=== PATIENT | male | born 1960 | race Caucasian/White ===

== ENCOUNTER 2022-07-12 06:17 | Day surgery (SDC) | payer OTHER, SELFPAY ==
[2022-07-12] VITALS (12 sets, daily range): BP systolic 133–148; BP diastolic 81–93; PULSE 58–65; RESP 16–18; TEMP 36.6–36.9; O2SAT 94–98; BMI 35.2
--- NOTE | 2022-07-12 07:48 | P.ORPRC_ITS ---
Procedure Note Date of procedure: 07/12/22 Procedure: Preop diagnosis: Right upper extremity carpal tunnel syndrome Postop diagnosis: Right upper extremity carpal tunnel syndrome Procedure: Right upper extremity carpal tunnel release Anesthesia: Local Surgeon: Yosvany Thompson MD assistant professor of geography: ADAM Denise EBL: 5 mL Complications: None Specimens: None Drains: None Indications: The patient has a history of right upper extremity carpal tunnel syndrome symptoms. Despite appropriate nonoperative management consisting of nighttime bracing and occupational therapy they continue to have symptoms. Operative intervention was recommended. The risks, benefits alternatives and expected outcomes were discussed in detail. These included but were not limited to: Infection, bleeding, injury to blood vessel or nerve, venous thromboembolism. All questions were answered to their satisfaction. The patient was placed supine on the operating room table. Local anesthesia was established with 0.5% Marcaine without epinephrine and 2% lidocaine without epinephrine. The hand was prepped and draped in usual sterile fashion. The limb was elevated the forearm pneumatic tourniquet was inflated to 250 mm of mercury. A longitudinal incision was made centered over the radial border of the ring finger at the base of the palm. Subcutaneous dissection was sharply taken through the palmar fascia and the palmaris brevis to the transverse carpal ligament. The ligament was divided in line with the incision. Proximal and distal dissection was carried with tenotomy and Metzenbaum scissors for a wide decompression of the carpal tunnel. The tourniquet was released , bleeding was controlled with direct pressure. The wound was closed with a 3-0 nylon. A bulky dry dressing was applied, sponge and needle counts were correct x 2. The patient tolerated the procedure well, there were no apparent complications. They were sent to same day surgery in satisfactory condition. Plan: Use of the hand as tolerates. Discontinue the intraoperative dressing on postoperative day 3 and may get the wound wet as tolerates. Follow up in the office in 2 weeks for a wound check and suture removal.
--- NOTE | 2022-07-12 08:16 | SUR.PREOP ---
I have reviewed and concur with all assessments, medication administration, and documentation completed by Brittany Souza, student nurse.?
== END 2022-07-12 08:21 | disposition home or self-care (01) ==
PROVIDERS: Visit Provider Orthopaedic Surgery
PROC: (CPT 64721; principal; 2022-07-12 07:15)
DX: G56.01 Carpal tunnel syndrome, right upper limb (principal)
CPT/HCPCS: 64721

== ENCOUNTER 2022-12-03 14:45 | Outpatient (RCR) | payer OTHER, SELFPAY | END 2023-04-02 23:59 | disposition home or self-care (01) | PROVIDERS: Visit Provider Orthopaedic Surgery | DX: M17.12 Unilateral primary osteoarthritis, left knee (principal); Z96.652 Presence of left artificial knee joint; M25.562 Pain in left knee; M25.662 Stiffness of left knee, not elsewhere classified; Z51.89 Encounter for other specified aftercare | CPT/HCPCS: 97161; 97535 ==

== ENCOUNTER 2022-12-18 06:06 | Day surgery (SDC) | payer OTHER, SELFPAY ==
[2022-12-18] VITALS (22 sets, daily range): BP systolic 101–151; BP diastolic 57–87; PULSE 16–70; RESP 12–18; TEMP 35.3–36.7; O2SAT 91–98; BMI 36.1
--- OUTSIDE RECORDS SUMMARY | 2022-12-18 06:11 | XMS_ITS | Continuity of Care Document ---
Author Name Unknown Organization [facility] Address [address] [place] [address] Phone Care Team Providers Care Corner Cutter Name Role Phone Saji Mistry Unavailable Unavailable Allergies, Adverse Reactions, Alerts Substance Reaction Status Criticality No Known Allergies Active No Inform ation Medications Medication Instructions Dosage Effective Dates (start - stop) Status Comments BENAZEPRIL HCL (unknown strength) Not Available - Active GEMFIBROZIL (unknown strength) Not Available - Active OMEGA-3 + D (unknown strength) Not Available - Active OMEPRAZOLE (unknown strength) Not Available - Active VIAGRA (unknown strength) Not Available - Active Procedures Procedure Date Office/Outpatient Visit,Est, Mod 2021 Office/Outpatient Visit,New, Mod 2020 Office/outpatient visit,est, mod 2010 X-ray exam of thoracic spine 2 view Postop followup visit Low back disk surgery/decompress 2008 PA Assist Low back disk surgery/decompre ss Office/outpatient visit,est, mod 2008 Office/outpatient visit,est, mod 2007 X-ray exam of thoracic spine 2 view Office/outpatient visit,est, mod 2007 X-ray exam of thoracic spine 2 view [facility] Remove vertebr body, thorax, sing le [facility] Remove added vertebral seg, thora x [facility] Cervical spine fusion (cerv,below C2) [facility] Spinal fusion, ea add'l interspac e Insert spine fix dev, ant, 2-3 seg Oct3 0-2006 Autograft, spine surgery, local 007 Office/outpatient visit,est, mod 2006 Office/outpatient visit,est, mod 2006 Office/outpatient visit,est, mod 2005 Advance Directives Directive Yes / No Effective Date File Name No Information Encounters Encounter Description Practice Location Reason(s) For Visit Diagnoses Date Provider Providers Copied on Encounter Office/Outpa tient Visit,Est, Mod [facility], [address], [place], [place], [id number], [place] tel:[phone] [facility] [place] [facility] in [facility] spine 2 Leobardo Lennon. [facility], [address], [place], [place], [id number], [place]. tel:[phone] Referring Provider: Saji Booth, [facility] [address], [place], [address] . tel:[phone] Office/Outpa tient Visit,New, Mod [facility], [address], [place], [place], [id number], [place] tel:[phone] [facility] 1 Leobardo Lennon. [facility], [address], [place], [place], [id number], [place]. tel:[phone] Referring Provider: Saji Booth, [facility] [address], [place], [address] . tel:[phone] Office/outpa tient visit,est, mod [facility], [address], [place], [address], [place] tel:[phone] [facility] [place] No Information 1 No Information Referring Provider: Irving Mejia, [address], [address]. tel:[phone] Z [facility], [address], [place], [address], [place] tel:[phone] [facility] No Information 9 No Information Referring Provider: Irving Mejia, [address], [address]. tel:[phone] Z [facility], [address], [place], [address], [place] tel:[phone] [facility] No Information 9 No Information Referring Provider: Irving Mejia, [address], [address]. tel:[phone] Office/outpa tient visit,est, mod Z [facility], [address], [place], [address], [place] tel:[phone] [facility] No Information 9 No Information Referring Provider: Irving Mejia, [address], [address]. tel:[phone] Office/outpa tient visit,est, mod Z [facility], [address], [place], [address], [place] tel:[phone] [email or web address] No Information 8 No Information Office/outpa tient visit,est, mod Z [facility], [address], [place], [address], [place] tel:[phone] [facility] No Information 8 No Information Z [facility], [address], [place], [address], [place] tel:[phone] [facility] No Information 7 No Information Office/outpa tient visit,est, mod Z [facility], [address], [place], [address], [place] tel:[phone] [facility] No Information 0 7 No Information Office/outpa tient visit,est, mod Z [facility], [address], [place], [address], [place] tel:[phone] [email or web address] No Information Sep-1 2-200 7 No Information Office/outpa tient visit,est, mod Z [facility], [address], [place], [address], [place] tel:[phone] [facility] No Information Sep-0 6200 6 No Information Referring Provider: Irving Mejia, [address], [address]. tel:[phone] Family History Family Member Type Diagnosis Age At Onset No Information Payers Payer name Insurance type Covered green party ID Authoriza tion(s) [employer] [id number] Social History Type Description Quantity Date Captured Comments Alcohol Use Details Unknown Caffeine Use Details Unknown Tobacco Use Status No Information Smoking Status No Information Sex Male Vital Signs Date / Time: Height Weight BMI Pulse Rate Blood Pressure Temperature Respiratory Rate Body Surface Area Head Circumference Head Circ. Percentile Wt./Cassius. Percentile BMI percentile Pulse Ox Inhaled Ox 9:08 AM 72.00 in Chief Complaint And Reason For Visit No Information Reason For Referral Reason For Referral No Information History Of Present Illness Encounter Date Complaint History Of Prese nt Illness No Information Functional Status Date Functional Assessmen t No Information Instructions Date Instruction Additional Infor mation No Information Assessments Type Assessment Date No Information Patient Care Teams Name Effective Dates (start - stop) Status Members No Information
[2022-12-18] MEDS: ACETAMINOPHEN 500 MG TABLET 1000 MG PO ×3 (06:54→18:35)
[2022-12-18] MEDS: CELECOXIB 200 MG CAPSULE PO (06:54)
[2022-12-18] MEDS: OXYCODONE (CR) 10 MG TAB.ER.12H PO (06:54)
[2022-12-18] MEDS: SODIUM CHLORIDE 0.9 % (FLUSH) 10 ML SYRINGE IVF (07:00)
[2022-12-18] MEDS: LACTATED RINGERS 1000 ML 1,000 ML 100 ML IV ×2 (07:01→07:39)
[2022-12-18] MEDS: MIDAZOLAM HCL 1 MG/ML inj IVP (07:15)
[2022-12-18] MEDS: fentaNYL 100 MCG/2 ML inj IVP (07:15)
--- NOTE | 2022-12-18 07:21 | SUR.PREOP ---
TIME?OUT:?713 PT/Eli Murphy RN/Dr. Ellie MDA?VERIFICATION?OF?SURGICAL?SITE left knee,?PROCEDURE,?AND?CONSENT OBTAINED?PRIOR?TO?INVASIVE?PROCEDURE.
--- NOTE | 2022-12-18 07:55 | SUR.OPER ---
PATIENT QUESTIONS ANSWERED SATISFACTORILY PREOPERATIVELY.? PATIENT BROUGHT TO OR #2 PER CART AFTER ADMINISTRATION OF A BLOCK.? Patient positioned supine on OR #2 bed.? The perioperative?team supported arms bilaterally on arm boards.? Final approval of positioning by surgeon.?
--- NOTE | 2022-12-18 07:56 | P.NB_ITS ---
Nerve Block Nerve Block Time Seen by Provider: 07:17 Date Seen: 12/18/22 Type of block requested by surgeon for post-operative analgesia: adductor canal Side: left Time out performed: Yes Verification of patient name: Yes Verification of date of : Yes Site marking: site marked Name of person performing procedure: El Continuous monitoring Was continuous monitoring of O2 sat, B/P, manager monitoring, recorded every 15 minutes?: Yes Procedure Checklist: sterile prep, needles and gloves Ultrasound guided. Images saved: Yes Medications given in 5ml increments after negative aspiration: Ropivicaine %: 0.5 mL: 20 Needle gauge: 20 Decadron (mg): 10 Precedex (mcg): 25 Patient tolerated procedure well: Yes Additional comments: Needle noted adjacent to nerve Block Charges Block Charge (with Pro Fee): Femoral Nerve Use of Ultrasound Machine for Block: Yes- US Guidance/pain block
--- NOTE | 2022-12-18 07:56 | P.NB_ITS ---
Nerve Block Nerve Block Time Seen by Provider: 07:17 Date Seen: 12/18/22 Type of block requested by surgeon for post-operative analgesia: geniculars Side: left Time out performed: Yes Verification of patient name: Yes Verification of date of : Yes Site marking: site marked Name of person performing procedure: El Continuous monitoring Was continuous monitoring of O2 sat, B/P, monitoring and evaluation advisor, recorded every 15 minutes?: Yes Procedure Checklist: sterile prep, needles and gloves Medications given in 5ml increments after negative aspiration: Ropivicaine %: 0.5 mL: 9 Needle gauge: 25 Patient tolerated procedure well: Yes Block Charges Block Charge (with Pro Fee): Genicular Nerve Block Use of Ultrasound Machine for Block: No
--- NOTE | 2022-12-18 07:56 | W.ANESCHARGE ---
Anesthesia Charges Start Date/Time Anesthesia Start Date: 12/18/22 Anesthesia Start Time: 07:21 Stop Date/Time Anesthesia Stop Date: 12/18/22 Anesthesia Stop Time: 10:04
--- NOTE | 2022-12-18 08:08 | W.ANESCHARGE ---
Anesthesia Charges Start Date/Time Anesthesia Start Date: 12/18/22 Anesthesia Start Time: 07:21 Stop Date/Time Anesthesia Stop Date: 12/18/22 Anesthesia Stop Time: 10:04
--- NOTE | 2022-12-18 09:01 | CRLHL7_ITS ---
For Patients: As a result of the Cures Act, medical imaging exams and procedure reports are released immediately into your electronic medical record. You may view this report before your referring provider. If you have questions, please contact your health care provider. Indication: POSTOP TKA Technique: Two views left knee Findings/Impression: Hardware from a left total knee arthroplasty is in satisfactory position. Bone alignment is normal. No sign of acute fracture. Postop changes are within normal limits. Dictated by David Lowery MD @ 12/18/2022 10:15:41 AM (Electronically Signed)
--- NOTE | 2022-12-18 09:05 | PM.ORPRC ---
Procedure Note Date of procedure: 12/18/22 Procedure: PREOPERATIVE DIAGNOSIS: Left knee osteoarthritis POSTOPERATIVE DIAGNOSIS: Left knee osteoarthritis NAME OF OPERATION: Left total knee arthroplasty SURGEON: Yosvany Thompson MD MANAGER CATEGORY: Lizbeth Valdez PA-C ANESTHESIA: Spinal ESTIMATED BLOOD LOSS: 0 mL COMPLICATIONS: None SPECIMENS: None DRAINS: None PREOPERATIVE ANTIBIOTICS: Ancef 3 grams, antibiotic impregnated cement IMPLANTS: 1. J&J Attune # 8 posterior stabilized femur 2. # 8 fixed-bearing tibia, with a 14 mm x 50 mm stem 3. # 8 posterior stabilized, 5 mm fixed-bearing polyethylene 4. 41 patella INDICATIONS: The patient is a 62-year-old with a longstanding history of severe, unrelenting left knee pain secondary to end-stage (grade IV) left knee osteoarthritis. Despite appropriate nonoperative management, including activity modification, anti-inflammatories, jbtz-iiy-zardook pain medication, bracing, physical therapy, and injections they continue to have pain and disability. Operative intervention was offered. The risks, benefits and expected outcomes were discussed in detail. These included but were not limited to: Infection, bleeding, injury to blood vessel or nerve, venous thromboembolism. All questions were answered to their satisfaction. Use of an surgical supply assistant was necessary throughout the case for patient positioning and safety, soft tissue retraction, and closure. A modifier 22 should be added to this case. The patient's weight of 121 kg with a BMI of 36 kg/meter squared requires the use of a stem. Additionally, with the previous medial parapatellar arthrotomy there was a significant amount of scar in the medial compartment. These factors made the dissection and exposure more difficult, adding more than 33% more time to complete the case. PROCEDURE: Spinal anesthesia was administered. The patient was placed supine on the operating table. The surgical supply assistant made sure the patient was positioned appropriately. The lower extremity was prepped and draped in the usual sterile fashion. The limb was exsanguinated with the Darin bandage. The pneumatic tourniquet was inflated to 300 mmHg. A standard anterior incision was made with the knee in flexion. Subcutaneous dissection was sharply taken through fascial layer #1. Full-thickness medial and lateral flaps were elevated. The surgical supply assistant retracted the soft tissues and protected them throughout the case. A standard medial parapatellar approach was made. The patella was everted. The infrapatellar fat pad was preserved. The menisci and cruciate ligaments were sharply d?brided. Marginal osteophytes were d?brided with the rongeur. The drill was used to penetrate the femoral canal. The canal was aspirated and irrigated with pulse lavage. The intramedullary femoral guide was placed for a 5-degree valgus cut, removing 12 mm off the distal femur. The saw was used to make the cut. Whitesides line and the trans epicondylar axis were marked. The femoral sizing guide was pinned onto the distal femur. Three degrees of external rotation nicely parallels the transepicondylar axis. Pins were placed for posterior referencing. The four-in-one cutting guide was pinned onto the distal femur. The anterior, posterior, and chamfer cuts were made. The surgical supply assistant protected the collateral ligaments. The box cutting guide was pinned. The box cuts were made. The boxed trial was placed and was an excellent fit. Drill holes for the lugs were made. Attention was then turned to the proximal tibia. The extramedullary tibial guide was placed for a neutral varus/valgus cut with 5 degrees of posterior slope, removing 2 mm based off the medial tibial surface. The surgical supply assistant protected the collateral ligaments and the neurovascular bundle. The saw was used to make the cut. Trial components were placed. The knee was nicely balanced in both flexion and extension. The trial components were removed. The tray was placed in appropriate rotation, parallel to our tibial cutting pins. It was pinned by the surgical supply assistant and the drill x2 was used. The stemmed tibial trial was placed. The punch was used. The tray was removed. The punch was used again. We placed a bone plug in the femoral canal. Cancellous surfaces were irrigated with pulse lavage and thoroughly dried by the surgical supply assistant. We cemented the tibial component, then the femoral component. We impacted the 5 mm polyethylene onto the tibial tray. The knee was brought into full extension. We then cemented the patellar component. Excessive cement was removed. The cement was allowed to harden. The knee was taken through a range of motion and was found to be nicely balanced in both flexion and extension. The patella tracks centrally. The surgical supply assistant did a three minute dilute Betadine solution soak. The surgical supply assistant irrigated the wound with 3 liters of normal saline via pulse lavage. The surgical supply assistant reapproximated the extensor mechanism with #1 Vicryl in an interrupted [id number] fashion. The surgical supply assistant then ran the extensor mechanism with a #1 PDO Stratafix. The surgical supply assistant closed the subcutaneous tissues with a 3-0 Stratafix and the skin with a running 3-0 Stratafix in a subcuticular fashion. Glue was used to seal the skin. The surgical supply assistant placed a dry dressing, CATHERINE stocking, and Polar Care. Sponge and needle counts were correct x2. The patient tolerated the procedure well. There were no apparent complications. They were carefully transferred to the hospital bed and taken to the postanesthesia care unit in satisfactory condition. PLAN: The patient will be mobilized with physical therapy. Xarelto will be used for DVT prophylaxis. They will be discharged to home once medically appropriate.
[2022-12-18] MEDS: LACTATED RINGERS 1000 ML 1,000 ML 75 ML IV (10:55)
[2022-12-18] MEDS: HYDROmorphone 0.5 mg/0.5 ml inj IVP ×2 (11:36→14:07)
--- NOTE | 2022-12-18 13:20 | PC.NURSE ---
PATIENT ADMITTED TO MED/SURG FLOOR AT APPROXIMATELY 1040 TODAY. HE HAS DENIED N/V SINCE ARRIVAL TO UNIT. PAIN TO LEFT KNEE/LEG AT ITS HIGHEST HAS BEEN 4-5/10 PER PATIENT REPORT. PRN DILAUDID WAS THEN GIVEN WHICH REDUCED PAIN TO LEFT KNEE/LEG TO 1-2/10 PER PATIENT REPORT. PT TRANSFERRED PATIENT FROM BED TO RECLINER AFTER LUNCH THOUGH HE REPORTED PAIN WAS STILL MANAGEABLE AT 1-2/10 AFTER TRANSFERRING. SCHEDULED TYLENOL HAS BEEN GIVEN AND CRYO CUFF HAS BEEN UTILIZED SINCE ARRIVING BACK FROM SURGERY. CMS TO LLE NOTED TO BE INTACT UPON ASSESSMENT AND LUNG SOUNDS ARE CLEAR TO ALL LOBES BILATERALLY. OR STAFF REPORTED THAT PATIENT'S BLOOD PRESSURE AND PULSE TREND LOWER THOUGH PATIENT HAS BEEN ASYMPTOMATIC SINCE ARRIVAL TO MED/SURG UNIT. PATIENT ATE 100% OF LUNCH PROVIDED IN ROOM. DRESSING TO ANTERIOR L KNEE NOTED TO BE CLEAN, DRY AND INTACT UPON INSPECTION. BOWEL SOUNDS ACTIVE IN ALL FOUR QUADRANTS WITH NO BM YET SINCE SURGERY. PATIENT DENIES NUMBNESS/TINGLING WHEN ASKED. HAS BEEN PRESENT AT BESIDE SINCE SHORTLY AFTER ARRIVING TO UNIT. CALL LIGHT WITHIN REACH. BILATERAL CATHERINE STOCKINGS WORN.
--- NOTE | 2022-12-18 14:27 | PC.NURSE ---
PATIENT REPORTED PAIN TO L KNEE/LEG 4-5/10 THIS AFTERNOON. SEXER DID ENCOURAGE USE OF PRN OXYCODONE PO RESIDENT IS EATING AND DRINKING WITH NO N/V THOUGH PATIENT REQUESTED TO TAKE IV DILAUDID STATING, OXYCODONE HASN'T REALLY WORKED FOR ME IN THE PAST. HE IS RESTING IN RECLINER WITH CATHERINE STOCKINGS AND PLEXIPULSE BOOTS WORN. HE STATES HE WILL BE WILLING TO AMBULATE IN HALLWAY AROUND 1500 AFTER PRN PAIN MEDICATION HAS HAD TIME TO WORK. PATIENT HAS NOT YET VOIDED SINCE ARRIVING TO M/S UNIT THOUGH FLUIDS HAVE BEEN PROVIDED. PATIENT STATES HE IS NOT YET PASSING GAS THOUGH BOWEL SOUNDS CONTINUE TO BE ACTIVE IN ALL FOUR QUADRANTS.
--- NOTE | 2022-12-18 14:41 | PM.IMCN1 ---
Date of Consult Consult date: 12/18/22 Requesting Physician: Orthopedics Primary Care Provider: [facility] [place] Consult Narrative Reason for consult: Medical management Narrative: Isaac Collier is a 62 year old male past medical history significant for ASCVD with NSTEMI in 2013 resulting in PTCA x3, a 2nd NSTEMI 2016 resulting in PTCA x2, hypertension, mild CKD, hyperkalemia, hypercholesterolemia, diabetes mellitus type 2 diet-controlled, Raynaud's phenomena, provoked DVT postop 2006 is POD#0 s/p left total knee arthroplasty with Dr. Thompson. Currently, patient reports pain is appropriately managed. Has been ambulating in the hallways. Tolerating orals without nausea vomiting. There have been no perioperative complications or nursing concerns reported. Estimated total blood loss documented as 0 ml. Updated and reviewed the active medical problems, past medical history, past surgical history, social history, allergies and medications in our electronic EMR. Review of Systems Narrative: REVIEW OF SYSTEMS: Complete review of systems performed and negative unless otherwise stated in HPI or below. PFSH PFS Medical History Raynauds disease ?I73.00 - Raynaud's syndrome without gangrene (ICD-10) Rhinitis, allergic ?J30.9 - Allergic rhinitis, unspecified (ICD-10) Organic erectile dysfunction ?N52.9 - Male erectile dysfunction, unspecified (ICD-10) Primary osteoarthritis of lumbar spine ?M47.816 - Spondylosis without myelopathy or radiculopathy, lumbar region (ICD-10) GERD (gastroesophageal reflux disease) ?K21.9 - Gastro-esophageal reflux disease without esophagitis (ICD-10) DVT (deep venous thrombosis) ?I82.409 - Acute embolism and thrombosis of unspecified deep veins of unspecified lower extremity (ICD-10) Morbid obesity ?E66.01 - Morbid (severe) obesity due to excess calories (ICD-10) Atherosclerotic heart disease ?I25.10 - Atherosclerotic heart disease of [place] coronary artery without angina pectoris (ICD-10) Primary osteoarthritis of left knee ?M17.12 - Unilateral primary osteoarthritis, left knee (ICD-10) Chronic kidney disease, stage 2 (mild) ?N18.2 - Chronic kidney disease, stage 2 (mild) (ICD-10) Type II diabetes mellitus ?E11.9 - Type 2 diabetes mellitus without complications (ICD-10) Heart attack ?I21.9 - Acute myocardial infarction, unspecified (ICD-10) Elevated cholesterol ?E78.00 - Pure hypercholesterolemia, unspecified (ICD-10) Hypertension ?I10 - Essential (primary) hypertension (ICD-10) Surgical History History of tonsillectomy ?Z90.89 - Acquired absence of other organs (ICD-10) Hx of angioplasty ?Z98.62 - Peripheral vascular angioplasty status (ICD-10) Status post carpal tunnel release (07/12/22) ?Z98.890 - Other specified postprocedural states (ICD-10) S/P right rotator cuff repair (02/17/20) ?Z98.890 - Other specified postprocedural states (ICD-10) History of back surgery ?Z98.890 - Other specified postprocedural states (ICD-10) H/O left knee surgery ?Z98.890 - Other specified postprocedural states (ICD-10) H/O toe surgery ?Z98.890 - Other specified postprocedural states (ICD-10) History of cholecystectomy ?Z90.49 - Acquired absence of other specified parts of digestive tract (ICD-10) Social History Narrative: -Melva Smoking Status: Former smoker What tobacco products do you use: cigarettes Smoking quit date/years: >15 years ago Do you use any of these nicotine containing products: None Second hand tobacco smoke exposure: No How often do you have a drink containing alcohol: monthly or less How many standard drinks containing alcohol do you have on a typical day: 1 or 2 How often do you have six or more drinks on one occasion: Never AUDIT-C Alcohol total score: 1 Non-prescribed substance use: denies use Caffeine: No Meds Home Medications and Allergies Home Medications Medication Instructions Recorded Confirmed Type ascorbic acid (vitamin C) 1,000 mg 2 g PO QDAY 02/21/22 12/18/22 History capsule aspirin 81 mg capsule 81 mg PO QDAY 02/21/22 12/18/22 History fexofenadine 180 mg tablet 180 mg PO Q24H 02/21/22 12/18/22 History (Allergy Relief (fexofenadine)) metoprolol tartrate 25 mg tablet 25 mg PO QDAY 02/21/22 12/18/22 History omega-3 fatty acids 500 mg capsule 500 mg PO QDAY 02/21/22 12/18/22 History rosuvastatin 40 mg tablet 40 mg PO QDAY 02/21/22 12/18/22 History amlodipine 5 mg tablet 5 mg PO DAILY 10/17/22 12/18/22 History benazepril 40 mg tablet 40 mg PO DAILY 10/17/22 12/18/22 History hydrochlorothiazide 25 mg tablet 25 mg PO DAILY 10/17/22 12/18/22 History Allergies Allergy/AdvReac Type Severity Reaction Status Date / Time latex Allergy Rash Verified 12/18/22 06:20 terbinafine Allergy Verified 12/18/22 06:20 metformin AdvReac Gastrointestinal Verified 12/18/22 06:20 Upset stainless steel Allergy Severe Rash Uncoded 12/18/22 06:20 Exam Narrative: Exam Narrative: PHYSICAL EXAM General: Pleasant, conversant, NAD HEENT: Normocephalic, atraumatic, sclera white, EOMI, oral mucosa moist Cardiovascular: RRR, S1S2. No pitting edema Pulmonary: CTA bilaterally without rhonchi, rales, expiratory wheezes. No dyspnea Abdominal: Soft, nondistended, NTTP Neurological: Alert, answering questions appropriately, cranial nerves intact, no focal findings Extremities: No gross joint deformity or swelling. Postoperative dressing in place, dry. Neurovascularly intact Skin: Warm, dry. Const: Vital Signs, click to edit/add: Vital Signs - 24 hr 12/18/22 07:04 12/18/22 07:15 12/18/22 10:00 Temperature 97.8 F 97.9 F Pulse Rate 54 L 57 L 55 L Pulse Rate [Pulse Oximeter] Respiratory Rate 16 16 16 Blood Pressure 131/82 137/77 104/63 Blood Pressure [Le ft Arm] Pulse Oximetry 94 98 94 Oxygen Delivery Me thod Room Air Nasal Cannula Room Air Oxygen Flow Rate 2 12/18/22 10:05 12/18/22 10:10 12/18/22 10:15 Temperature 97.9 F Pulse Rate 58 L 52 L 59 L Pulse Rate [Pulse Oximeter] Respiratory Rate 18 14 16 Blood Pressure 103/57 L 109/65 107/66 Blood Pressure [Le ft Arm] Pulse Oximetry 94 95 94 Oxygen Delivery Me thod Room Air Room Air Room Air Oxygen Flow Rate 12/18/22 10:20 12/18/22 10:25 12/18/22 10:29 Temperature 98.0 F Pulse Rate 48 L 48 L 52 L Pulse Rate [Pulse Oximeter] Respiratory Rate 16 16 16 Blood Pressure 101/64 101/64 104/61 Blood Pressure [Le ft Arm] Pulse Oximetry 94 94 94 Oxygen Delivery Me thod Room Air Room Air Room Air Oxygen Flow Rate 12/18/22 10:41 12/18/22 10:56 12/18/22 11:10 Temperature 95.8 F L 95.6 F L 95.8 F L Pulse Rate Pulse Rate [Pulse Oximeter] 48 L 47 L 50 L Respiratory Rate 12 12 16 Blood Pressure Blood Pressure [Le ft Arm] 105/68 103/60 105/62 Pulse Oximetry 93 94 93 Oxygen Delivery Mi thod Room Air Room Air Room Air Oxygen Flow Rate 12/18/22 11:42 12/18/22 12:17 12/18/22 13:01 Temperature 95.5 F L 96.2 F L 96.3 F L Pulse Rate Pulse Rate [Pulse Oximeter] 51 L 56 L 55 L Respiratory Rate 14 16 12 Blood Pressure Blood Pressure [Le ft Arm] 104/73 118/76 118/71 Pulse Oximetry 93 96 96 Oxygen Delivery Me thod Room Air Room Air Room Air Oxygen Flow Rate 12/18/22 14:00 Temperature 96.0 F L Pulse Rate Pulse Rate [Pulse Oximeter] 16 L Respiratory Rate 16 Blood Pressure Blood Pressure [Le ft Arm] 128/74 Pulse Oximetry 92 Oxygen Delivery Mi thod Room Air Oxygen Flow Rate Assessment and Plan Assessment and plan (1) Osteoarthritis of left knee: Problem comment: -POD#0 s/p left TKA. -Perioperative management including pain control, therapy, anticoagulation per Orthopedic Surgery. Status: Acute (2) DVT (deep venous thrombosis): Problem comment: -history of, postoperatively. Previously on Xarelto. -orthopedic team to address postoperative anticoagulation to prevent recurrence. Patient tells me they discussed a 6 month course following surgery. Status: Acute (3) Type II diabetes mellitus: Problem comment: -currently diet controlled, not on any oral medications, not insulin dependent, does not check his blood sugars at home. Most recent A1c 5.7 -diabetic diet encouraged -discussed with patient, will not routinely check glucose while in the hospital, expect levels to be higher postoperatively Status: Acute (4) Hypertension: Problem comment: -soft blood pressures postoperatively as can be expected, continue to monitor -resume home medications on discharge Status: Acute Plan May resume home medications upon discharge. Consider antihypertensives in the morning if necessary. Hospital medicine team will sign off. Please contact our service with any questions or concerns.
[2022-12-18] MEDS: OXYCODONE 5 MG TABLET PO ×2 (15:19→18:34)
--- NOTE | 2022-12-18 15:34 | PC.NURSE ---
PATIENT AMBULATED FROM ROOM TO END OF TERRELL AND BACK THIS AFTERNOON. TOLERATED WELL. PATIENT VOIDED 500 ML OF LESLIE COLORED URINE AFTER AMBULATION. HE IS RESTING IN BED AT THIS TIME AFTER BEING SEEN BY OSMIN STEVEN.
--- NOTE | 2022-12-18 19:16 | PC.NURSE ---
End of Shift: Patient pleasant and cooperative. Patient vitally stable, lungs clear, BS WNL, IV SL. Patient rates knee pain 2-3/10, scheduled tylenol given along with 10mg of oxy x2. Patient 1 assist, walker, gb. Patient urinated 500 and tolerating regular diet, eating all of dinner. Left knee dressing, C/D/I.
[2022-12-18] MEDS: SENNOSIDES 1 TAB TABLET 2 TAB PO (21:03)
--- NOTE | 2022-12-18 22:59 | PC.NURSE ---
Shift [id number]- Patient rates pain 2. Dressing is clean, dry, intact with cryocuff. He is up with assist of 1, walker, gait belt.
[2022-12-19] MEDS: ACETAMINOPHEN 500 MG TABLET 1000 MG PO ×2 (00:37→06:55)
[2022-12-19] MEDS: OXYCODONE 5 MG TABLET PO ×3 (01:44→10:59)
[2022-12-19 01:48] VITALS: BP 125/76; PULSE 66; RESP 16; TEMP 36.5; O2SAT 94
[2022-12-19 06:51] LABS: Hematocrit 41.1 % (37.0-53.0); Hemoglobin* 14.1 gm/dL (13.5-17.5); Immature Granulocytes Pct Auto 0.3 %; Lymphocytes Percent Auto 6.9 % (20-44); Mean Corpuscular HGB Conc 34 gm/dL (32-36); Mean Corpuscular Hemoglobin 32 pg (26-34); Mean Corpuscular Volume 94 fL (80-100); Monocytes Percent Auto 8.5 % (0.0-11.0); Neutrophils Percent Auto 84.3 % (42.0-72.0); Platelet Count* 209 K/uL (140-440); RDW Coefficient of Variation % 11.8 % (11.5-15.5); Red Blood Count 4.36 m/uL (4.30-5.90); White Blood Count* 12.83 K/uL (4.50-11.00)
--- NOTE | 2022-12-19 06:58 | PC.NURSE ---
Shift note [id number]: Pt alert and oriented x3. Afebrile. Pt reports 4/10 pain in left knee, managed with scheduled and PRN medications and cryo cuff. Pt left knee dressing is CDI. Pt is up SBA with walker gait belt and voiding. Pt slept intermittently throughout night.??
[2022-12-19 07:08] LABS: INR 0.96 (0.91-1.10); Prothrombin Time 13.4 Seconds
[2022-12-19 07:14] LABS: Potassium* 4.9 mmol/L (3.6-5.1); Sodium* 137 mmol/L (135-149)
[2022-12-19 07:16] LABS: Slide Review Reflex No
[2022-12-19 07:17] LABS: Creatinine* 1.2 mg/dL (0.5-1.5); Est. Creatinine Clearance* 69.16; Estimated Glomerular Filt Rate 68 ml/min
[2022-12-19 07:18] LABS: Blood Urea Nitrogen* 23 mg/dL (7-30)
[2022-12-19 07:21] VITALS: BP 148/73; PULSE 62; RESP 16; TEMP 36.6; O2SAT 96
--- NOTE | 2022-12-19 08:22 | PM.ORPN ---
Subjective Subjective Time Seen by Provider: 08:22 Date Seen: 12/19/22 Principal diagnosis: Status post left knee replacement Interval history: Esvin is comfortable this morning. He denies nausea and vomiting. He will discharge to home today. He has been ambulating. Ortho Exam Narrative Exam Narrative: Alert and oriented x3. Patient is in no acute distress. Converses without labored breathing. Hearing is grossly intact. Ambulates with a walker. Examination of the left knee shows the dressing is intact. No erythema or drainage or sign of infection. Mild effusion. Mild soft tissue edema. CMS is intact left lower extremity. Quad strength 5/5. Bilateral calves soft and nontender. Const Vital Signs, click to edit/add: Vital Signs - 24 hr 12/18/22 10:00 12/18/22 10:05 12/18/22 10:10 Temperature 97.9 F Pulse Rate 55 L 58 L 52 L Pulse Rate [Pulse Oximeter] Respiratory Rate 16 18 14 Blood Pressure 104/63 103/57 L 109/65 Blood Pressure [Left Arm] Pulse Oximetry 94 94 95 Oxygen Delivery Method Room Air Room Air Room Air 12/18/22 10:15 12/18/22 10:20 12/18/22 10:25 Temperature 97.9 F Pulse Rate 59 L 48 L 48 L Pulse Rate [Pulse Oximeter] Respiratory Rate 16 16 16 Blood Pressure 107/66 101/64 101/64 Blood Pressure [Left Arm] Pulse Oximetry 94 94 94 Oxygen Delivery Method Room Air Room Air Room Air 12/18/22 10:29 12/18/22 10:41 12/18/22 10:56 Temperature 98.0 F 95.8 F L 95.6 F L Pulse Rate 52 L Pulse Rate [Pulse Oximeter] 48 L 47 L Respiratory Rate 16 12 12 Blood Pressure 104/61 Blood Pressure [Left Arm] 105/68 103/60 Pulse Oximetry 94 93 94 Oxygen Delivery Method Room Air Room Air Room Air 12/18/22 11:10 12/18/22 11:42 12/18/22 12:17 Temperature 95.8 F L 95.5 F L 96.2 F L Pulse Rate Pulse Rate [Pulse Oximeter] 50 L 51 L 56 L Respiratory Rate 16 14 16 Blood Pressure Blood Pressure [Left Arm] 105/62 104/73 118/76 Pulse Oximetry 93 93 96 Oxygen Delivery Method Room Air Room Air Room Air 12/18/22 13:01 12/18/22 14:00 12/18/22 15:00 Temperature 96.3 F L 96.0 F L 96.5 F L Pulse Rate Pulse Rate [Pulse Oximeter] 55 L 16 L 65 Respiratory Rate 12 16 16 Blood Pressure Blood Pressure [Left Arm] 118/71 128/74 151/87 H Pulse Oximetry 96 92 96 Oxygen Delivery Method Room Air Room Air Room Air 12/18/22 15:15 12/18/22 15:15 12/18/22 15:55 Temperature 97.7 F Pulse Rate Pulse Rate [Pulse Oximeter] Respiratory Rate 16 14 Blood Pressure Blood Pressure [Left Arm] 117/85 Pulse Oximetry 96 91 Oxygen Delivery Method Room Air 12/18/22 16:45 12/18/22 19:35 12/18/22 23:55 Temperature 97.1 F L 98 F Pulse Rate Pulse Rate [Pulse Oximeter] 59 L 70 Respiratory Rate 16 16 Blood Pressure Blood Pressure [Left Arm] 113/75 141/77 H Pulse Oximetry 91 94 96 Oxygen Delivery Method Room Air 12/18/22 23:55 12/18/22 23:55 12/19/22 01:48 Temperature 97.7 F 97.7 F Pulse Rate Pulse Rate [Pulse Oximeter] 68 68 66 Respiratory Rate 16 16 16 Blood Pressure Blood Pressure [Left Arm] 128/74 125/76 Pulse Oximetry 96 94 Oxygen Delivery Method Room Air Room Air 12/19/22 07:21 12/19/22 07:21 12/19/22 07:21 Temperature 98 F Pulse Rate Pulse Rate [Pulse Oximeter] 62 62 Respiratory Rate 16 16 Blood Pressure Blood Pressure [Left Arm] 148/73 H Pulse Oximetry 96 96 Oxygen Delivery Method Room Air Assessment and Plan Assessment and plan (1) DVT (deep venous thrombosis): Problem details: -history of, postoperatively. Previously on Xarelto. -orthopedic team to address postoperative anticoagulation to prevent recurrence. Status: Acute (2) Type II diabetes mellitus: Problem details: -currently diet controlled, not on any oral medications, not insulin dependent, does not check his blood sugars at home. Most recent A1c 5.7 -diabetic diet encouraged -discussed with patient, will not routinely check glucose while in the hospital, expect levels to be higher postoperatively Status: Acute (3) Hypertension: Problem details: -soft blood pressures postoperatively as can be expected, continue to monitor -resume home medications on discharge Status: Acute (4) Status post left knee replacement: Problem details: 12/18/2022 Status: Acute Assessment and Plan: Plan for discharge is today to home if they meet discharge criteria. DVT prophylaxis includes Xarelto 10 mg daily for [address] Thompson. I have asked Esvin to speak with his family doctor to see if he would like DVT prophylaxis longer than 35 days. He states he will contact his family provider., (I have read hospitalist note stating 6 months of DVT prophylaxis, Orthopedics did not suggest this.) Elio stockings x1 month may remove for 1 hr per day, frequent ambulation Remove dressing in 1 week. Observe wound and phone Orthopedics with any questions or concerns Return to clinic in 1 week for a wound check Return to clinic in 6 weeks with surgeon Minimize narcotic use. Wean off and discontinue soon as possible. Activities as tolerated. No strenuous activity. Outpatient physical therapy as scheduled. Ice and elevate the operative extremity. No restriction on ice.
[2022-12-19] MEDS: SENNOSIDES 1 TAB TABLET 2 TAB PO (08:45)
[2022-12-19] MEDS: RIVAROXABAN 10 MG TABLET PO (08:46)
--- NOTE | 2022-12-19 10:46 | P.DS_ITS ---
DS: Providers Provider Date Seen: 12/19/22 Primary care physician: Not a Local Provider Attending Physician on discharge: Yosvany Thompson MD Date of Discharge: 12/19/22 DS: Diagnosis Discharge Diagnosis (1) Status post left knee replacement: Status: Acute Problem details: 12/18/[address] Thompson. No complications. (2) DVT (deep venous thrombosis): Status: Acute Problem details: -history of, postoperatively from back surgery and also after a car trip to [place]. Previously on Xarelto. With this history patient is at increased risk for postoperative DVT. (3) Atherosclerotic heart disease: Status: Acute Problem details: History of coronary stenting more than 5 years ago. No recent heart disease symptoms or intervention. DS: Summary Hospital Course Hospital Course: 62-year-old male status post left knee arthroplasty. Procedure performed without complications. Postoperatively is doing well. Hemoglobin is 14. We discussed today ongoing antiplatelet and anticoagulation strategy. At this point I agree with continuing aspirin 81 mg daily and Xarelto 10 mg daily, as prescribed by Orthopedics. Duration of Xarelto could be as short as 2 weeks. At this point I recommend outpatient monitoring for bleeding and bruising complications. If significant complications of bleeding developed would stop Xarelto. Time Spent with Patient Time attestation: Total time spent providing and/or coordinating discharge services: Time spent: Less than 30 minutes Exam Narrative: Exam Narrative: He is alert no distress. Breathing is unlabored. Lower extremities without significant edema. No significant bruising around his left knee. He is walking stairs well. Const: Vital Signs, click to edit/add: Vital Signs - 24 hr 12/18/22 10:56 12/18/22 11:10 12/18/22 11:42 Temperature 95.6 F L 95.8 F L 95.5 F L Pulse Rate [Pulse Oximeter] 47 L 50 L 51 L Respiratory Rate 12 16 14 Blood Pressure [Le ft Arm] 103/60 105/62 104/73 Pulse Oximetry 94 93 93 Oxygen Delivery Me thod Room Air Room Air Room Air 12/18/22 12:17 12/18/22 13:01 12/18/22 14:00 Temperature 96.2 F L 96.3 F L 96.0 F L Pulse Rate [Pulse Oximeter] 56 L 55 L 16 L Respiratory Rate 16 12 16 Blood Pressure [Le ft Arm] 118/76 118/71 128/74 Pulse Oximetry 96 96 92 Oxygen Delivery Me thod Room Air Room Air Room Air 12/18/22 15:00 12/18/22 15:15 12/18/22 15:15 Temperature 96.5 F L Pulse Rate [Pulse Oximeter] 65 Respiratory Rate 16 16 Blood Pressure [Le ft Arm] 151/87 H Pulse Oximetry 96 96 Oxygen Delivery Me thod Room Air 12/18/22 15:55 12/18/22 16:45 12/18/22 19:35 Temperature 97.7 F 97.1 F L 98 F Pulse Rate [Pulse Oximeter] 59 L 70 Respiratory Rate 14 16 16 Blood Pressure [Le ft Arm] 117/85 113/75 141/77 H Pulse Oximetry 91 91 94 Oxygen Delivery Me thod Room Air Room Air 12/18/22 23:55 12/18/22 23:55 12/18/22 23:55 Temperature 97.7 F Pulse Rate [Pulse Oximeter] 68 68 Respiratory Rate 16 16 Blood Pressure [Le ft Arm] 128/74 Pulse Oximetry 96 96 Oxygen Delivery Me thod Room Air 12/19/22 01:48 12/19/22 07:21 12/19/22 07:21 Temperature 97.7 F 98 F Pulse Rate [Pulse Oximeter] 66 62 Respiratory Rate 16 16 Blood Pressure [Le ft Arm] 125/76 148/73 H Pulse Oximetry 94 96 96 Oxygen Delivery Me thod Room Air Room Air 12/19/22 07:21 Temperature Pulse Rate [Pulse Oximeter] 62 Respiratory Rate 16 Blood Pressure [Le ft Arm] Pulse Oximetry Oxygen Delivery Me thod Documenting provider has reviewed patient's vital signs: yes DS: Data Data Completed and Pending Labs on day of discharge: Labs from last 24 hours 12/19/22 06:15 WBC 12.83 H RBC 4.36 Hgb 14.1 Hct 41.1 MCV 94 MCH 32 MCHC 34 RDW Coeff of Javon 11.8 Plt Count 209 Neut % (Auto) 84.3 H Lymph % (Auto) 6.9 L Frederick % (Auto) 8.5 Eos % (Auto) 0.0 Baso % (Auto) 0.0 Neut # (Auto) 10.80 H Lymph # (Auto) 0.90 Frederick # (Auto) 1.10 H Eos # (Auto) 0.00 Baso # (Auto) 0.00 Abs Immat Gran (auto) 0.00 Imm/Tot Granulo (auto) 0.3 INR 0.96 Sodium 137 Potassium 4.9 BUN 23 Creatinine 1.2 Estimated Creat Clear 69.16 Estimated GFR 68 Discharge Plan Discharge Disposition: Home, Self-Care Discharging Surgeon: Yosvany Thompson Follow-Up Appointment: One week Prescriptions: New sennosides [Senna Lax] 8.6 mg Tablet 17.2 mg PO BID PRN (Reason: constipation) Qty: 100 0RF acetaminophen 500 mg capsule 500 - 1,000 mg PO Q6H MDD 4000mg per day PRN (Reason: pain) Qty: 100 0RF oxycodone 5 mg Tablet 2.5 - 5 mg PO Q4-6H MDD 6 tabs per day PRN (Reason: Pain) Qty: 42 0RF Rx Instructions: Minimize. Discontinue as soon as possible Xarelto 10 mg tablet 10 mg PO DAILY Qty: 34 0RF Continued amlodipine 5 mg tablet 5 mg PO DAILY hydrochlorothiazide 25 mg tablet 25 mg PO DAILY benazepril 40 mg tablet 40 mg PO DAILY ascorbic acid (vitamin C) 1,000 mg capsule 2 g PO QDAY aspirin 81 mg capsule 81 mg PO QDAY fexofenadine [Allergy Relief (fexofenadine)] 180 mg tablet 180 mg PO Q24H metoprolol tartrate 25 mg tablet 25 mg PO QDAY omega-3 fatty acids 500 mg capsule 500 mg PO QDAY rosuvastatin 40 mg tablet 40 mg PO QDAY Discontinued glimepiride 1 mg tablet 0.5 mg PO .QD Hold Instructions: Doctor's Order acetaminophen [Tylenol] 325 mg capsule 650 mg PO Q6H PRN Activity Level: Activity as Tolerated and No strenuous activity Activity Detail: Keep dressing on for 1 week. Dressing is waterproof. May shower. Surgical glue covers the wound. Attend outpatient physical therapy if scheduled. Ice and elevate operative extremity without restriction. Wear compression stockings for 1 month post surgery. May remove for 1 hour per day. Ambulate every hour throughout the day. If you drive, Do not drive while taking narcotic pain medication. Do not drink alcohol while taking narcotic pain medication. May drive when safe to do so and have full function of the extremities, this may take 6 weeks or more. Notify Orthopedics with any questions or concerns. ([phone]) Patient Instructions: Acetaminophen (By mouth), Oxycodone, Rapid Release (By mouth), Rivaroxaban (By mouth), Senna (By mouth), Knee Replacement (DC) Forms: Work/School Release Follow-up: Alva Laboy, ANATOLY [Physician [employer]] - 12/26/22 1:00 pm ([facility] for follow-up. ) Provider,Not a Local [Primary Care Provider] - Discharge Orders: Discharge Order (Routine); Ordered 12/19/22 Ordered By: Alva Laboy Consulting provider completed their portion of the discharge: Yes
--- NOTE | 2022-12-19 11:17 | PC.NURSE ---
Discharge: Patient pleasant and cooperative. Patient vitally stable, lungs clear, BS WNL, IV removed, catheter intact. Patient rates left knee pain 2-3/10, 10 mg ox oxy given twice. Patient urinating and tolerating regular diet. Patient 1 assist, walker, gb. Dressing C/D/I. Patient signed belongings sheet and discharge form, patient had no further question regarding discharge education. Patient left the floor by wheelchair to home at 1115.
== END 2022-12-19 11:15 | disposition home or self-care (01) ==
LOC: OR 06:08 → MEDSURG 06:55
PROVIDERS: Visit Provider Orthopaedic Surgery
PROC: (CPT 27447; principal; 2022-12-18 07:15)
DX: M17.12 Unilateral primary osteoarthritis, left knee (principal); G89.18 Other acute postprocedural pain; I25.10 Atherosclerotic heart disease of native coronary artery without angina pectoris; I25.2 Old myocardial infarction; I12.9 Hypertensive chronic kidney disease with stage 1 through stage 4 chronic kidney disease, or unspecified chronic kidney disease; E11.22 Type 2 diabetes mellitus with diabetic chronic kidney disease; N18.9 Chronic kidney disease, unspecified; I73.00 Raynaud's syndrome without gangrene; E66.01 Morbid (severe) obesity due to excess calories; N18.2 Chronic kidney disease, stage 2 (mild); K21.9 Gastro-esophageal reflux disease without esophagitis; Z86.718 Personal history of other venous thrombosis and embolism
CPT/HCPCS: 27447; 01402; 36415; 64447; 64454; 73560; 76942; 82565; 84132; 84295; 84520; 85025; 85610; 97110; 97116; 97161; 97165; 97530; 97535; A9270; C1776; J0690; J1100; J1170; J2250; J2371; J2704; J2795; J3010; J7120

== ENCOUNTER 2023-01-03 09:51 | Outpatient (CLI) | payer OTHER, SELFPAY ==
--- OUTSIDE RECORDS SUMMARY | 2023-01-03 09:54 | XMS_ITS | Continuity of Care Document ---
Author Name Unknown Organization [facility] Address [address] [place] [address] Phone Care Team Providers Care Hostler Helper Name Role Phone Saji Mistry Unavailable Unavailable [...] tient Visit,Est, Mod [facility], [address], [place], [place], [id number], [place] tel:[phone] [facility] 2 Leobardo Lennon. [facility], [address], [place], [place], [id number], [place]. tel:[phone] Referring Provider: Saji Booth, [facility] [address], [place], [address] . tel:[phone] Office/Outpa tient Visit,New, Mod [facility], [address], [place], [place], [id number], [place] tel:[phone] [facility] [place] [facility] 1 Leobardo Lennon. [facility], [address], [place], [place], [id number], [place]. tel:[phone] Referring Provider: Saji Booth, [facility] [address], [place], [address] . tel:[phone] Office/outpa tient visit,est, mod Z [facility], [address], [place], [address], [place] tel:[phone] [facility] [place] No Information 1 No Information Referring Provider: Irving Mejia, [address], [address]. tel:[phone] Z [facility], [address], [place], [address], [place] tel:[phone] [facility] No Information 9 No Information Referring Provider: Irving Mejia, [address], [address]. tel:[phone] Z [facility], [address], [place], [address], [place] tel:[phone] [facility] No Information 9 No Information Referring Provider: Irving Mejia, [address], [address]. tel:[phone] Office/outpa tient visit,est, mod Z [facility], [address], [place], [address], [place] tel:[phone] [facility] No Information 9 No Information Referring Provider: Irving Mejia, [address], [address]. tel:[phone] Office/outpa tient visit,est, mod Z [facility], [address], [place], [address], [place] tel:[phone] [facility] No Information 8 No Information Office/outpa tient visit,est, mod Z [facility], [address], [place], [address], [place] tel:[phone] [facility] No Information 8 No Information Z [facility], [address], [place], [address], [place] tel:[phone] [facility] No Information 7 No Information Office/outpa tient visit,est, mod Z [facility], [address], [place], [address], [place] tel:[phone] [facility] No Information 0 7 No Information Office/outpa tient visit,est, mod Z [facility], [address], [place], [address], [place] tel:[phone] [facility] No Information Sep-1 2-200 7 No Information Office/outpa tient visit,est, mod Z [facility], [address], [place], [address], [place] tel:[phone] [facility] No Information Sep-0 6200 6 No Information Referring Provider: Irving Mejia, [address], [address]. tel:[phone] Family History Family Member Type Diagnosis Age At Onset No Information Payers Payer name Insurance type Covered green party ID Authoriza tion(s) [employer] [id number] Social History Type Description Quantity Date Captured [...]
--- NOTE | 2023-01-03 10:15 | CRLHL7_ITS ---
For Patients: As a result of the Century Cures Act, medical imaging exams and procedure reports are released immediately into your electronic medical record. You may view this report before your referring provider. If you have questions, please contact your health care provider. INDICATION: Status post left total knee replacement and history of calf DVT. TECHNIQUE: Ultrasound venous duplex lower left extremity. Compression venous exam was performed using rachel-scale, color Doppler, and spectral Doppler analysis. COMPARISON: None. FINDINGS: Sonographic imaging demonstrates the left common femoral, deep femoral, superficial femoral, popliteal, posterior tibial and greater saphenous and the contralateral right common femoral veins to be fully compressible with normal color Doppler blood flow. IMPRESSION: Normal left lower extremity venous ultrasound, no sign of deep venous thrombosis. Dictated by Denver Coleman MD @ 01/03/2023 8:51:00 PM (Electronically Signed)
== END 2023-01-03 09:52 | disposition home or self-care (01) ==
LOC: US 09:52
PROVIDERS: Visit Provider Physician Assistant
DX: Z86.718 Personal history of other venous thrombosis and embolism (principal); Z96.652 Presence of left artificial knee joint
CPT/HCPCS: 93971